=== PATIENT | male | born 1965 | race Caucasian/White ===

== ENCOUNTER 2025-10-18 10:28 | Outpatient (CLI) | payer BC, SELFPAY ==
--- NOTE | ~2025-10-18 | XR_ITS ---
XR abdomen/kub 1V 10/18/2025 10:45 INDICATION: Urolithiasis. Left lower quadrant discomfort. TECHNIQUE: KUB COMPARISON: None FINDINGS: Bowel gas pattern is normal. There is no evidence of free air, mass, organomegaly, ascites or obstruction. There is a left renal stone presumably in the renal pelvis at the L2 level. The bones appear intact. There are cholecystectomy clips. There are pelvic phleboliths. There are prostate ca lcifications. IMPRESSION: 1: Left nephrolithiasis. Reviewed, dictated and finalized at location I. [employer] IMPRESSION: 1: Left nephrolithiasis.
== END 2025-10-18 10:29 | disposition home or self-care (01) ==
PROVIDERS: PCP Student in an Organized Health Care Education/Training Program; Visit Provider Urology
DX: N20.0 Calculus of kidney (principal)
CPT/HCPCS: 74018

== ENCOUNTER 2025-10-23 10:25 | Outpatient (CLI) | payer BC, SELFPAY ==
[2025-10-23 11:13] LABS: INR 1.0; Partial Thromboplastin Time 30.0 Seconds (22.3-36.8); Prothrombin Time 12.7 Seconds (11.1-14.7)
== END 2025-10-23 10:26 | disposition home or self-care (01) ==
LOC: ANHLAB 10:26
PROVIDERS: PCP Student in an Organized Health Care Education/Training Program; Visit Provider Urology
DX: N20.0 Calculus of kidney (principal); R10.32 Left lower quadrant pain
CPT/HCPCS: 36415; 85610; 85730

== ENCOUNTER 2025-10-26 02:59 | Day surgery (SDC) | payer BC, SELFPAY ==
[2025-10-23 09:30] VITALS: BMI 25.4
--- NOTE | 2025-10-23 09:58 | PC.NURSE ---
[facility] has started construction of its new state of the art ER which will open Spring 2026. With this, we anticipate parking may be a challenge for some our surgical patients and families. Parking spaces are limited but are available for all Surgical, obstetrics, and ER patients sharing this lot. If you arrive and find you are having a hard time finding a parking space, please note that we understand the challenges, please drive around the hospital and park near Hospital Entrance 1. When you enter this entrance, you can ask a volunteer to direct or take you back to the surgical waiting area to check in. We appreciate everyone?s understanding of these expected challenges while we build for your future. Report to the Outpatient Waiting Room, entrance under the green pavilion located off [address], at time _0630AM on date __10/26/25 . Planned Procedure Time: __0830AM .? Time changes happen often and if your time is changed the preop area will call you the afternoon before. - You and your visitor will be asked to self-screen and do not enter if you have any COVID symptoms. Please call surgeon if you need to reschedule. - A mask is optional within the hospital at this time. Patients may have clear liquids (water, carbonated beverages, clear teas, apple juice) until 3 hours prior to surgery with a maximum of 20 ounces. - No food from midnight until time of surgery and no smoking, or chewing tobacco (or any form of nicotine). No chewing gum, candy or mints. - Take only the following medications with a SIP of water on the morning of surgery: ___N/A DO NOT STOP ANY OF YOUR OTHER PRESCRIPTION MEDICATIONS PRIOR TO SURGERY EXCEPT THE FOLLOWING Hold all vitamins and supplements for 3 days per anesthesiologist. Medications to discontinue per physician N/A Date to take last dose__N/A Please no make-up, nail micronesian, hairspray, perfume, deodorant, or body powder the day of surgery.? No jewelry (including any body piercings) or valuables the day of surgery, leave them at home.? Please take a shower or bath the night before, or the morning of, surgery with an antibacterial soap.? Wear comfortable, loose fitting clothing.? Children are encouraged to wear pajamas. - Jewelry must be removed prior to entering the operating room.? Rings and piercings that are not removed may be cut off. - The hospital will not accept responsibility for valuables.? - Please leave all valuables, including medications, at home the day of surgery. If you are going home after surgery, a licensed stock car driver must drive you home.? - NO public transportation without another adult if you receive anesthesia. - We recommend that an adult stay with you for 24 hours following discharge. - We also recommend that you do not drive, make important decision, drink alcoholic beverages, or take any drugs that were not prescribed by your health care provider for at least 24 hours after your discharge time. Follow any additional instructions given to you from your surgeon. Telephone instructions given to JOVANNA and asked if any additional questions and then verbalized understanding. Patient advised to call surgeon office or pre surgery nurse liaison [phone] if any additional questions.
[2025-10-26] VITALS (8 sets, daily range): BP systolic 95–130; BP diastolic 58–81; PULSE 47–60; RESP 10–16; TEMP 36.4–36.6; O2SAT 99–100; BMI 25.4
--- NOTE | ~2025-10-26 | XR_ITS ---
EXAMINATION: XR abdomen/kub 1V, 10/26/2025 6:20 READING TEACHER HISTORY: ESWL COMPARISON: No comparisons available. Technique: 3 view. Findings: Bowel gas pattern unremarkable. No obstruction. Within the lower pole the left kidney there is a calculus measuring 6 x 3 mm. No acute osseous abnormality. Impression: 1. No acute abnormality. Reviewed, dictated and finalized at location P. ING TEACHER Impression: 1. No acute abnormality.
--- OUTSIDE RECORDS SUMMARY | 2025-10-26 03:02 | XMS_ITS | Encounter Summary ---
Author Organization [facility] Address [address] [place] [address] Care Team Providers Care Front End Ui Developer Name Role Phone Telly Rachel DO Primary Care Provider + Reason for Visit * Reason Comments Image (SCAN) Encounter Details Date Type Department Care Team (Latest Contact Info) Description 10/18/2025 Scan HEALTH INFO SRVCS Scanned, Doc Med Group Image (SCAN) Social History Tobacco Use Types Packs/Day Years Used Date Smoking Tobacco: Former Cigarettes 1 2 0 11/15/1983 - 11/15/1985 Smokeless Tobacco: Never Alcohol Use Standard Drinks/Week Comments Yes 5 (1 standard drink = 0.6 oz pur e alcohol) Sex and Gender Information Value Date Recorded Sex Assigned at Male 10/16/2025 12:36 PM FINANCIAL SERVICES INTERNSHIP Legal Sex Male 11:41 AM CDT Gender Identity Not on file Sexual Orientation Not on file Occupation Industry Job Start Date Job End Date Not on file Not on file Not on file Not on file documented as of this encounter Plan of Treatment Upcoming Encounters Date Type Department Care Team (Late st Contact Info) Description 12/07/2025 8:40 AM FINANCIAL SERVICES INTERNSHIP Office Visit [facility] Family & Internal Medicine [id number] [place] [phone] Telly Rachel DO [address] [place] [address] [phone] documented as of this encounter Procedures Procedure Name Priority Date/Time Associated Diagnosis Comments IMAGE GENERIC 10/18/2025 documented in this encounter Results * IMAGE GENERIC (10/18/2025) Anatomical Region Laterality Modality Other 10/18/2025 us Doc Med Group Scanned SCANNING Final Resu lt documented in this encounter Visit Diagnoses Not on filedocumented in this encounter Care Teams Front End Ui Developer Relationship Specialty Start Date End Date Telly Rachel DO [address] [place], [place] [phone] PCP - General FAMILY PRACTICE 09/24/22 documented as of this encounter
--- OUTSIDE RECORDS SUMMARY | 2025-10-26 03:02 | XMS_ITS | Clinical Summary ---
Author Organization [facility] Address [address] [place] [address] Care Team Providers Care Quality Assurance Qa Lab Technician Name Role Phone Telly Rachel Primary Care Provider + Allergies Active Allergy Reactions Criticality Noted Date Comments Penicillins Unknown 11/15/1968 Statins Joint Pain,Leg Pain 03/15/2012 Medications TURMERIC CURCUMIN OR Active tamsulosin (FLOMAX) 0.4 MG CapIndications: Ureteropelvic junction calculus Take 1 capsule (0.4 mg total) by mouth daily. 30 capsule 1 5 Active hydrocortisone 2.5 % cream APPLY TOPICALLY TO AFFECTED AREAS OF FACE TWICE DAILY. 2 10/16/20 25 Discontinu ed(Therapy completed) Active Problems Problem Noted Date Diagnosed Date Palpitations 09/15/2022 Encounters Date Type Department Care Team Description 10/18/2025 Scan HEALTH INFO SRVCS Scanned, Doc Med Group Image (SCAN) 10/16/2025 2:05 PM RECRUITMENT MANAGER - 10/16/2025 11:59 PM RECRUITMENT MANAGER Hospital [place] [address] [place] [address] Maribel Winters APNP Discharge Disposition: Home or Self Care (Routine Discharge) 10/16/2025 12:40 PM RECRUITMENT MANAGER Office Visit [facility] Family & Internal Medicine [address] [phone] Maribel Winters APNP UTI (Pt c/o LLQ pain and visible blood in urine-onset yesterday. ) 10/16/2025 - 10/16/2025 2:04 PM RECRUITMENT MANAGER Hospital [facility] [address] [place] [address] Maribel Winters APNP Discharge Disposition: Home or Self Care (Routine Discharge) 10/16/2025 Results Follow-Up [facility] Family & Internal Medicine [address] [phone] ABD+PEL KIDNEY STONE, URINALYSIS AUTO DIP, URINE BACTERIA CULTURE 10/16/2025 Travel from Last 3 Months Immunizations Immunization Administration Dates Next Due Influenza Adult (Generic) 07/31/2020,09/03/2019, 09/24/2018 Shingrix 01/30/2021,08/01/2020 Family History Medical History Relation Comments Cancer Brother Prostate Cancer Father Prostate, skin Cancer Mother Breast Cancer Sister Breast, Bladder Relation Status Comments Brother Father Mother Sister Social History Tobacco Use Types Packs/Day Years Used Date Smoking Tobacco: Former Cigarettes 1 2 0 11/15/1983 - 11/15/1985 Smokeless Tobacco: Never Tobacco Cessation:Counseling Given: Yes Alcohol Use Standard Drinks/Week Comments Yes 5 (1 standard drink = 0.6 oz pur e alcohol) Sex and Gender Information Value Date Recorded Sex Assigned at Male 10/16/2025 12:36 PM RECRUITMENT MANAGER Legal Sex Male 11:41 AM CDT Gender Identity Not on file Sexual Orientation Not on file Occupation Industry Job Start Date Job End Date Not on file Not on file Not on file Not on file Last Filed Vital Signs Vital Sign Reading Time Taken Comments Blood Pressure 122/72 10/16/2025 12:36 PM RECRUITMENT MANAGER Pulse 71 10/16/2025 12:36 PM RECRUITMENT MANAGER Temperature 36.2 C (97.1 F) 10/16/2025 12:36 PM RECRUITMENT MANAGER Respiratory Rate 16 10/16/2025 12:36 PM RECRUITMENT MANAGER Oxygen Saturation 98% 10/16/2025 12:36 PM RECRUITMENT MANAGER Inhaled Oxygen Concentration - - Weight 70.5 kg (155 lb 8 oz) 10/16/2025 12:36 PM RECRUITMENT MANAGER Height 165.1 cm (5' 5) 10/16/2025 12:36 PM RECRUITMENT MANAGER Body Mass Index 25.88 10/16/2025 12:36 PM RECRUITMENT MANAGER Plan of Treatment Upcoming Encounters Date Type Department Care Team (Late st Contact Info) Description 12/07/2025 8:40 AM RECRUITMENT MANAGER Office Visit [facility] Family & Internal Medicine - [id number] [place] [phone] Telly Rachel DO [address] [place] [address] Health Maintenance Due Date Last Done Comments Annual Physical 1967 DTaP, Tdap and Td Vaccines ( 1 - Tdap) 1983 Pneumococcal Vaccine: 50+ Years (1 of 1 - PCV) 2014 PHQ-2 (Physician [place]) 11/15/2024 COVID-19 Vaccine ( - 2024-2 6 season) 2025 Influenza Adult (#1) 2025 07/31/2020, 09/03/2019, 09/24/2018 Colorectal Cancer Screening Colonoscopy (10 Years) 11/15/2026 Postponed from (Awaiting Documentation) RSV Immunization or 60+ Years (1 - 1-dose 75+ series) 2039 Zoster Vaccines Completed 01/30/2021, 08/01/2020 Hepatitis C Completed 10/26/2022 Hepatitis A Vaccines Aged Out No long er eligible based on patient's age to complete this topic Meningococcal B Vaccine Aged Out No l onger eligible based on patient's age to complete this topic Meningococcal Vaccine Aged Out No kait mary eligible based on patient's age to complete this topic RSV Immunizations Under 20 Months Aged Out No longer eligible b ased on patient's age to complete this topic Procedures Procedure Name Priority Date/Time Associated Diagnosis Comments IMAGE GENERIC 10/18/2025 CT ABD+PEL KIDNEY STONE STAT 10/16/2025 2:15 PM RECRUITMENT MANAGER Left lower quadrant abdominal pain Hematuria, unspecified type URINE BACTERIA CULTURE Routine 10/16/2025 1:42 PM RECRUITMENT MANAGER Hematuria, unspecified type URINALYSIS AUTO DIP Routine 10/16/2025 Gross hematuria HEPATITIS C ANTIBODY Routine 10/26/2022 8:22 AM RECRUITMENT MANAGER Need for hepatitis C screening test from Last 3 Months or Most Recently Relevant to Health Maintenance Results * IMAGE GENERIC (10/18/2025) Anatomical Region Laterality Modality Other 10/18/2025 us Doc Med Group Scanned SCANNING Final Resu lt * CT ABD+PEL KIDNEY STONE (10/16/2025 2:15 PM RECRUITMENT MANAGER) Anatomical Region Laterality Modality Abdomen Computed Tomogra phy 10/16/2025 2:32 PM RECRUITMENT MANAGER Impressions 10/16/2025 2:52 PM RECRUITMENT MANAGER IMPRESSION: 1. There is a nonobstructing 0.8 cm calculus at the left ureteropelvic junction. No additional ureteral calculus. 2. Additional nonobstructing bilateral intrarenal nephrolithiasis. Ordered By: MARIBEL WINTERS Interpreted By: Liam Veronica MD, 10/16/2025 2:32 PM Narrative 10/16/2025 2:52 PM RECRUITMENT MANAGER [facility] [address] [facility] [place] [address] EXAMINATION: CT ABD+PEL KIDNEY STONE DATE: 10/16/2025 2:07 PM HISTORY: 60-year-old male with left lower quadrant pain and hematuria. TECHNIQUE: Computed tomography of the abdomen and pelvis. Oral Contrast: None. Intravenous Contrast: None. A dose lowering technique was used for this procedure, which may include, but is not limited to, dose reduction technique, automated exposure control, the use of iterative reconstruction, and ALARA (As Low As Reasonably Achievable) / Image Gently techniques. COMPARISON: None. FINDINGS: Lower Chest: Included lung bases are clear. Liver: Normal in size and contour. Biliary System: Cholecystectomy. No biliary ductal dilatation. Pancreas: Unenhanced pancreas is unremarkable. Spleen: Normal in size. Adrenal Glands: Negative. Kidneys: Right renal cyst. Bilateral intrarenal nephrolithiasis. No hydronephrosis. There is a nonobstructing 0.8 cm calculus at the left ureteropelvic junction. No other ureteral calculus is present. Bowel: Stomach is underdistended. Small bowel and colon are normal in caliber. Appendix is negative and noted to terminate in the omentum right of midline. Surgical clips in the distal left paracolic gutter. Mesentery, Omentum, and Peritoneum: No pneumoperitoneum or ascites. Pelvic Organs: Urinary bladder is underdistended. Prostate gland is mildly enlarged and contains coarse calcifications. Lymph Nodes: No lymphadenopathy. Vasculature: Atherosclerotic calcifications of the abdominal aorta and its branches. Abdominal aorta is normal in caliber. Bones and Soft Tissues: Mild degenerative changes of the spine, hips, and sacroiliac joints. Procedure Note Liam Veronica MD - 10/16/2025 [facility] [address] [place], [place] [id number] EXAMINATION: CT ABD+PEL KIDNEY STONE DATE: 10/16/2025 2:07 PM HISTORY: 60-year-old male with left lower quadrant pain and hematuria. TECHNIQUE: Computed tomography of the abdomen and pelvis. Oral Contrast:None. Intravenous Contrast: None. A dose lowering technique was used forthis procedure, which may include, but is not limited to, dose reductiontechnique, automated exposure control, the use of iterativereconstruction, and ALARA (As Low As Reasonably Achievable) / Image Gentlytechniques. COMPARISON: None. FINDINGS: Lower Chest: Included lung bases are clear. Liver: Normal in size and contour. Biliary System: Cholecystectomy. No biliary ductal dilatation. Pancreas: Unenhanced pancreas is unremarkable. Spleen: Normal in size. Adrenal Glands: Negative. Kidneys: Right renal cyst. Bilateral intrarenal nephrolithiasis. Nohydronephrosis. There is a nonobstructing 0.8 cm calculus at the leftureteropelvic junction. No other ureteral calculus is present. Bowel: Stomach is underdistended. Small bowel and colon are normal incaliber. Appendix is negative and noted to terminate in the omentum rightof midline. Surgical clips in the distal left paracolic gutter. Mesentery, Omentum, and Peritoneum: No pneumoperitoneum or ascites. Pelvic Organs: Urinary bladder is underdistended. Prostate gland is mildlyenlarged and contains coarse calcifications. Lymph Nodes: No lymphadenopathy. Vasculature: Atherosclerotic calcifications of the abdominal aorta and itsbranches. Abdominal aorta is normal in caliber. Bones and Soft Tissues: Mild degenerative changes of the spine, hips, andsacroiliac joints. IMPRESSION: 1. There is a nonobstructing 0.8 cm calculus at the left ureteropelvicjunction. No additional ureteral calculus. 2. Additional nonobstructing bilateral intrarenal nephrolithiasis. Ordered By: MARIBEL WINTERS Interpreted By: Liam Veronica MD, 10/16/2025 2:[address] Final Resul t * URINE BACTERIA CULTURE (10/16/2025 1:42 PM RECRUITMENT MANAGER) SPEC DESCRIPTION URINE CLEAN CATCH 10/16/2025 1:43 PM RECRUITMENT MANAGER [facility] SPECIAL REQUESTS NO SPECIAL REQUEST 10/16/2025 1:43 PM RECRUITMENT MANAGER [facility] CULTURE RESULT NO GROWTH (< OR = 1,000 CFU/ML) 10/18/2025 10:09 AM RECRUITMENT MANAGER [facility] URINE URINE SPECIMEN OBTAINED BY CLEAN CATCH PROCEDURE / Unknown 10/16/2025 1:42 PM RECRUITMENT MANAGER 10/16/2025 8:46 PM RECRUITMENT MANAGER Maribel CAZARES MICROBIOLOGY - GENERAL ORDE RABLES Final Result [facility] [address] [place] [address], [id number] * (ABNORMAL) URINALYSIS AUTO DIP (10/16/2025) COLOR (U) YELLOW YELLOW -[facility] TRANSPARENCY CLEAR CLEAR MG-[facility] GLUCOSE (U) NEGATIVE NEGATIVE MG/DL [facility] BILIRUBIN (U) NEGATIVE NEGATIVE MG-[facility] [place] MG/DL (U) 40 (MODERATE 2+)(A) NEGATIVE MG/DL [facility] SPECIFIC GRAVITY (U) 1.020 1.001 - 1.035 [facility] BLOOD (U) MODERATE (2+ Hemolyzed, About 50 rbc/uL)(A) NEGATIVE [facility] U PH 5.5 5.0 - 9.0 [facility] PROTEIN (U) NEGATIVE NEGATIVE mg/dL [facility] UROBILINOGEN 0.2 0.2 - 1.0 EU/dL = mg/dL [facility] NITRITES NEGATIVE NEGATIVE MG/DL [facility] LEUKOCYTES (U) NEGATIVE NEGATIVE [facility] URINE URINE SPECIMEN OBTAINED BY CLEAN CATCH PROCEDURE / Unknown 10/16/2025 Maribel CAZARES URINE ORDERABLES Final Resu lt Performing Organization Address [facility] Co de Phone Number [facility] [address] [place] [address], [place] * HEPATITIS C ANTIBODY ([facility] ONLY) (10/26/2022 8:22 AM RECRUITMENT MANAGER) HEPATITIS C AB NON-REACTI VE NON-REACT LUTHER 10/26/2022 7:29 PM RECRUITMENT MANAGER [facility] Comment: ANTIBODIES TO HCV NOT DETECTED. DOES NOT EXCLUDE THE POSSIBILITY OF EXPOSURE TO HCV. 10/26/2022 8:22 AM RECRUITMENT MANAGER us Telly Rachel DO LABORATORY Final Re sult Performing Organization Address City/[facility]/ZIP Co de Phone Number [facility] [address] [place] [address], [place] [phone] from Last 3 Months or Most Recently Relevant to Health Maintenance Insurance [facility] Care Teams Quality Assurance Qa Lab Technician Relationship Specialty Start Date End Date Telly Rachel DO [address] [place] [phone] PCP - General FAMILY PRACTICE 09/24/22
--- OUTSIDE RECORDS SUMMARY | 2025-10-26 03:02 | XMS_ITS | Encounter Summary ---
Author Organization [facility] Address [address] [place] [address] Care Team Providers Care Ergonomics Technician Name Role Phone Telly Rachel DO Primary Care Provider + Encounter Details Date Type Department Care Team (Late Contact Info) Description 10/17/2023 Watchful Softwarehart Message Enc [facility] Family & Internal [address] [phone] Telly Rachel DO [address] [place], [place] [phone] Yearly Blood work Social History Tobacco Use Types Packs/Day Years Used Date Smoking Tobacco: Former Cigarettes 1 2 0 11/15/1983 - 11/15/1985 Smokeless Tobacco: Never Alcohol Use Standard Drinks/Week Comments Yes 5 (1 standard drink = 0.6 oz pur e alcohol) Sex and Gender Information Value Date Recorded Sex Assigned at Male 10/16/2025 12:36 PM SENIOR STORAGE ENGINEER Legal Sex Male 11:41 AM CDT Gender Identity Not on file Sexual Orientation Not on file Occupation Industry Job Start Date Job End Date Not on file Not on file Not on file Not on file documented as of this encounter Plan of Treatment Upcoming Encounters Date Type Department Care Team (Late st Contact Info) Description 12/07/2025 8:40 AM SENIOR STORAGE ENGINEER Office Visit [facility] Family & Internal [address] [phone] Telly Rachel DO [address] [place], [place] [phone] documented as of this encounter Visit Diagnoses Not on filedocumented in this encounter Care Teams Ergonomics Technician Relationship Specialty Start Date End Date Telly Rachel DO [address] [place] [phone] PCP - General FAMILY PRACTICE 09/24/22 documented as of this encounter
[2025-10-26] MEDS: LACTATED RINGERS 1,000 ML 30 ML IV CONT (07:00)
--- NOTE | 2025-10-26 07:07 | WPDHPUPDATE1 ---
History and Physical Update Update Date/Time: 10/26/25 07:07 History and Physical has been reviewed, including an updated exam of the patient. There are NO changes in the patient's condition. Risks, benefits, and alternatives have been discussed and questions answered. Patient agrees to proceed with procedure.
--- NOTE | 2025-10-26 07:07 | PM.HPGS ---
History of Present Illness History of Present Illness Consent: Risks, benefits, and alternatives have been discussed and questions answered. Patient agrees to proceed with procedure. Chief complaint: left kidney stone Narrative: Mynor Ontiveros is a 60 year old male with left flank pain, found to have left UPJ stone. He presents for left extracorporeal shock wave lithotripsy (SWL). Review of Systems Review of Systems: All systems reviewed & are unremarkable except as noted in HPI and below PMFSH Past Medical History Medical History (Updated 10/26/25 @ 07:09 by Laura Lama MD) Family history of prostate cancer Allergic rhinitis Hyperlipidemia Surgical History Surgical History S/P repair of hydrocele S/P scrotal varicocelectomy S/P cholecystectomy Family History Family History Father Malignant neoplasm of prostate Family history of elevated blood lipids Family history of amyotrophic lateral sclerosis Sibling Family history of gallbladder disease Malignant neoplasm of prostate Family history of malignant neoplasm of breast in first degree relative Family history of malignant neoplasm of breast Family history of malignant neoplasm of urinary bladder Mother Family history of heart disease in male family member before age 55 Acute myocardial infarction Hypertension Family history of elevated blood lipids Family history of malignant neoplasm of breast in first degree relative Social History Social History Smoking packs per day: 1 Smoking cigarettes per day: 20.0 Years smoked: 3 Smoking pack-years: 3.00 Smoking status: Former smoker Smoking end date: 11/15/83 Alcohol intake: current Substance use: never Substance use type: does not use Living arrangements: with family Spiritual care concerns: No Meds Home Medications and Allergies Home Medications ?Medication ?Instructions ?Recorded ?Confirmed ?Type cholecalciferol (vitamin D3) 1,250 See Rx Instructions .Route 06/24/21 10/23/25 Rx mcg (50,000 unit) capsule .COMPLEX #12 caps Allergies Allergy/AdvReac Type Severity Reaction Status Date / Time amoxicillin Allergy Unknown Sun Verified 10/23/25 09:46 Sensitivity Penicillins Allergy Unknown Unknown Verified 10/23/25 09:46 Ecqhsaz-PVP-IoW Reductase Allergy Unknown myalgia Verified 10/23/25 09:46 Inhibitor (Auiwckx-Bes-Hey Reductase Inhibitor) tamsulosin AdvReac Mild Congested Verified 10/23/25 09:46 Assessment and Plan Assessment and plan (1) Left nephrolithiasis: Code(s): N20.0 - Calculus of kidney Status: Acute Plan Plan left extracorporeal shock wave lithotripsy. Risks, benefits, alternatives have been discussed. All questions were answered.
--- NOTE | 2025-10-26 07:11 | P.PNAN_ITS ---
Anes - Initial Pre Proc Eval Procedure: Operation Date: 10/26/25 07:30 Proposed Procedures p Left Extracorporeal Shock Wave Lithotripsy - Laura Lama MD Date/Time: 10/26/25 07:11 Surgeon: Laura Lama MD Pre Op Diagnosis: left kidney stone Patient Data Age: 60 Gender: M Height: 1.65 m Weight: 69.2 kg Allergies Allergy/AdvReac Type Severity Reaction Status Date / Time amoxicillin Allergy Unknown Sun Verified 10/26/25 07:18 Sensitivity Penicillins Allergy Unknown Unknown Verified 10/26/25 07:18 Namdbqg-GWR-JsF Reductase Allergy Unknown myalgia Verified 10/26/25 07:18 Inhibitor (Wskqkmm-Kqw-Oeg Reductase Inhibitor) tamsulosin AdvReac Mild Congested Verified 10/26/25 07:18 Home Medications ?Medication ?Instructions ?Recorded ?Confirmed ?Type cholecalciferol (vitamin D3) 1,250 See Rx Instructions .Route 06/24/21 10/23/25 Rx mcg (50,000 unit) capsule .COMPLEX #12 caps Patient hx anesthesia problems: none Family hx anesthesia problems: none Results Review: All pre-operative results and documents have been reviewed as part of the pre- operative evaluation. [facility] Past Medical History Medical History Family history of prostate cancer Allergic rhinitis Hyperlipidemia Surgical History Surgical History S/P repair of hydrocele S/P scrotal varicocelectomy S/P cholecystectomy Family History Family History Father Malignant neoplasm of prostate Family history of elevated blood lipids Family history of amyotrophic lateral sclerosis Sibling Family history of gallbladder disease Malignant neoplasm of prostate Family history of malignant neoplasm of breast in first degree relative Family history of malignant neoplasm of breast Family history of malignant neoplasm of urinary bladder Mother Family history of heart disease in male family member before age 55 Acute myocardial infarction Hypertension Family history of elevated blood lipids Family history of malignant neoplasm of breast in first degree relative Social History Social History Smoking packs per day: 1 Smoking cigarettes per day: 20.0 Years smoked: 3 Smoking pack-years: 3.00 Smoking status: Former smoker Smoking end date: 11/15/83 Alcohol intake: current Substance use: never Substance use type: does not use Living arrangements: with family Spiritual care concerns: No Anes - Eval Final PreProcedure Day of Procedure 10/26/25 07:11 Patient weight: normal Heart: regular rate and rhythm Lungs: clear to auscultation Airway: Mallampati scale class II Neurological: alert and oriented Last oral intake: >/= 8 hours ASA classification: II Emergent: no Anesthetic plan: proceed Anesthesia type and monitoring: general LMA and standard monitoring Results Review: All pre-operative results and documents have been reviewed as part of the pre- operative evaluation. Informed Consent: The patient's anesthetic plan and its attendant risks and benefits were discussed with the patient/family/POA. Questions were solicited and answers provided to the satisfaction of the patient/family/POA.
[2025-10-26] MEDS: ceFAZolin 2 GM in SODIUM CHLORIDE 0.9% IV 50 ML 100 ML IVPB (07:28)
[2025-10-26] MEDS: SCOPOLAMINE 1 MG PATCH 1 PATCH TRANSDERM (07:43)
[2025-10-26] MEDS: oxyCODONE HCL (*CRX) 5 MG TAB IR PO (09:20)
--- NOTE | 2025-10-26 13:04 | W.PM.PROC2 ---
Procedure Note - Detailed Date of Procedure 10/26/25 Pre-op Diagnosis Left renal stone Post-op Diagnosis Same Procedure Performed Left extracorporeal shock wave lithotripsy Surgeon Laura Lama MD Anesthesia General Indications Left flank pain Findings Left renal stone Description of Procedure PROCEDURE DETAILS: The patient was correctly identified and informed consent was obtained.? The patient was taken to the operating room and placed in the supine position.? Intravenous antibiotics were administered for infection prophylaxis and bilateral SCDs were placed for DVT prophylaxis. The patient was positioned over the shock head of the lithotripter.? The stone was located at F2 using fluoroscopy.? 3000 shockwaves were delivered to the stone. The stone appeared to fragment.? The patient tolerated the procedure well and returned to the recovery area in good condition. Estimated Blood Loss 0 Drains No Packing No Pathology None sent Complications None Condition Stable Disposition PACU
== END 2025-10-26 10:22 | disposition home or self-care (01) ==
PROVIDERS: PCP Student in an Organized Health Care Education/Training Program; Visit Provider Urology
PROC: (CPT 50590; principal; 2025-10-26 07:30)
DX: N20.0 Calculus of kidney (principal); E78.5 Hyperlipidemia, unspecified; Z98.890 Other specified postprocedural states; Z90.49 Acquired absence of other specified parts of digestive tract; Z87.891 Personal history of nicotine dependence; Z80.42 Family history of malignant neoplasm of prostate; Z80.3 Family history of malignant neoplasm of breast; Z80.52 Family history of malignant neoplasm of bladder; Z82.49 Family history of ischemic heart disease and other diseases of the circulatory system
CPT/HCPCS: 50590; 74018; J0690; A9270; J2250; J2270; J2704; J7030; J7120

== ENCOUNTER 2025-11-12 21:50 | Emergency (ER) | payer BC, SELFPAY ==
--- NOTE | ~2025-11-12 | CT_ITS ---
EXAMINATION: CT abdomen pelvis wo con DATE: 11/13/2025 02:59 INDICATION: Flank pain. TECHNIQUE: Computed tomography (CT) of the abdomen and pelvis was performed without intravenous contrast. Automated exposure control and iterative reconstruction technique were employed. The dose-length product was 322.49 mGy-cm. COMPARISON: CT abdomen and pelvis 03/05/2017 FINDINGS: The visualized portions of the lung bases demonstrate mild atelectasis. No pleural effusion. The heart size is normal. No pericardial effusion. The liver is normal. There are changes of cholecystectomy. The spleen, pancreas, and adrenal glands are normal. There is a 2.6 cm cyst in right kidney. There are 3 stones in right kidney measuring up to 3 mm. There are 2 stones in left kidney measuring up to 7 mm. There is moderate left hydronephrosis and hydroureter. There are at least 4 stones in distal left ureter measuring up to 5 mm. There are no dilated loops of bowel. There is diverticulosis of the colon without evidence of diverticulitis. The appendix is normal. There are no pathologically enlarged lymph nodes. There is no free intraperitoneal fluid. There is severe lower lumbar spondylosis. IMPRESSION: 1. At least 4 stones in distal left ureter measuring up to 5 mm with moderate left hydronephrosis and hydroureter. 2. Bilateral nonobstructing kidney stones. Reviewed, dictated and finalized at location E. ERCIAL HVAC SERVICE TECHNICIAN IMPRESSION: 1. At least 4 stones in distal left ureter measuring up to 5 mm with moderate l eft hydronephrosis and hydroureter. 2. Bilateral nonobstructing kidney stones.
[2025-11-12 21:58] VITALS: BP 152/85; PULSE 65; RESP 18; TEMP 37; O2SAT 100
[2025-11-12 23:57] LABS: Hematocrit 44.1 % (42.0-52.0); Hemoglobin 15.1 g/dL (14.0-18.0); Immature Granulocyte Percent A 0.3 % (0-0.5); Lymphocytes Absolute Auto 1.43 K/mm3 (0.9-3.2); Mean Corpuscular HGB Conc 34.2 g/dl (32-36); Mean Corpuscular Hemoglobin 30.1 pg (26-34); Mean Corpuscular Volume 87.8 fl (80-100); Nucleated Red Blood Cells Absolute Auto 0.000 K/mm3 (0.0-0.012); Nucleated Red Blood Cells Perc 0.0 % (0.0-0.2); Platelet Count Result 237 k/mm3 (150-375); Red Blood Count 5.02 M/mm3 (4.6-6.20); White Blood Count 10.8 K/mm3 (4.5-10.0)
[2025-11-13] VITALS (10 sets, daily range): BP systolic 114–160; BP diastolic 73–95; PULSE 58–69; RESP 12–19; TEMP 36.4–36.6; O2SAT 98–100
[2025-11-13 00:08] LABS: Alanine Aminotransferase 22 U/L (6-50); Albumin Level 4.0 g/dL (3.5-5.1); Alkaline Phosphatase 88 U/L (38-126); Anion Gap 6 mmol/L (4-12); Aspartate Amino Transferase 28 U/L (17-59); Bilirubin,Total 0.9 mg/dL (0.2-1.3); Blood Urea Nitrogen 21 mg/dL (9-20); Calcium 9.8 mg/dL (8.4-10.2); Carbon Dioxide 25 mmol/L (22-30); Chloride 107 mmol/L (98-107); Estimated CRCL calculation 54 ml/min; Estimated Glomerular Filt Rate > 60; Glucose 103 mg/dL (65-110); Potassium 4.0 mmol/L (3.4-5.0); Sodium 138 mmol/L (137-145); Total Protein 7.5 g/dL (6.3-8.2)
[2025-11-13 00:09] LABS: Add Urine Microscopic? YES; Appearance Urine Clear (Clear); Glucose Urine UA Negative (Negative); Leukocyte Esterase Ur Negative LEU/UL (Negative); Need Manual Microscopic Reviewed; Nitrate Urine Negative (Negative); Non Pathogenic Casts 0-2; Specific Grav Ur 1.016 (1.001-1.035)
--- NOTE | 2025-11-13 02:51 | ED.MALEGU ---
HPI - Male Genitourinary General Chief complaint: Urogenital-Male Stated complaint: L Flank pain/blood in urine-Lithotripsy 10/26/25 Time Seen by Provider: 11/13/25 02:45 History of Present Illness HPI Narrative: 60-year-old male with history of kidney stones with recent 8 mm left-sided kidney stone requiring shock wave lithotripsy about 2 weeks ago. Patient did well after the procedure and still had some pink-tinged urine but yesterday noted that he had recurrence of the same pain he experienced during his kidney stone before. Started in his left flank and now in his left low groin left lower quadrant. Endorses some blood in his urine but no difficulty urinating. States he does not have a good reaction with tamsulosin as it made him feel warm flushed lightheaded dizzy and had a headache. Ran out of pain medications at home. Denies any nausea vomiting. Pain comes and goes in waves. No systemic symptoms such as fever, chills, vomiting. Denies any traumatic injuries or any recent health concerns otherwise. Related Data Allergies Allergy/AdvReac Type Severity Reaction Status Date / Time amoxicillin Allergy Unknown Sun Verified 10/26/25 07:18 Sensitivity Penicillins Allergy Unknown Unknown Verified 10/26/25 07:18 Fujzukq-PGN-HbV Reductase Allergy Unknown myalgia Verified 10/26/25 07:18 Inhibitor (Mwxwqts-Vbe-Uwk Reductase Inhibitor) tamsulosin AdvReac Mild Congested Verified 10/26/25 07:18 Review of Systems Review of Systems: As reviewed above in HPI All systems reviewed & are unremarkable except as noted in HPI and below PMFSH Past Medical History Medical History (Updated 11/13/25 @ 06:30 by Yaya Hyman MD) Family history of prostate cancer Allergic rhinitis Hyperlipidemia Surgical History Surgical History S/P repair of hydrocele S/P scrotal varicocelectomy S/P cholecystectomy Family History Family History Father Malignant neoplasm of prostate Family history of elevated blood lipids Family history of amyotrophic lateral sclerosis Sibling Family history of gallbladder disease Malignant neoplasm of prostate Family history of malignant neoplasm of breast in first degree relative Family history of malignant neoplasm of breast Family history of malignant neoplasm of urinary bladder Mother Family history of heart disease in male family member before age 55 Acute myocardial infarction Hypertension Family history of elevated blood lipids Family history of malignant neoplasm of breast in first degree relative Social History Social History Smoking packs per day: 1 Smoking cigarettes per day: 20.0 Years smoked: 3 Smoking pack-years: 3.00 Smoking status: Former smoker Smoking end date: 11/15/83 Alcohol intake: current Substance use: never Substance use type: does not use Living arrangements: with family Spiritual care concerns: No Exam Narrative: GENERAL: [Well-appearing, well-nourished, and in no acute distress.] HEAD: [Normocephalic, atraumatic.] EYES: [PERRLA and EOMI.] ENT: Nares clear, no rhinorrhea or epistaxis. Mucous membranes moist. NECK: Supple. CHEST: [Clear to auscultation. No respiratory distress.] HEART: [Regular rate and rhythm]. No murmur heard. [Normal peripheral pulses.] ABDOMEN: Minimal tenderness to palpation left lower quadrant. No CVA tenderness. No rigidity, rebound, guarding, peritonitis. EXTREMITIES: Normal range of motion. [No edema.] SKIN: Warm, dry, no rash. NEURO: [No focal deficits]. Alert and oriented [x3.] PSYCH: [Normal mood and affect.] Course Vital Signs Vital signs: Vital Signs Temperature 37.0 C 11/12/25 21:58 Pulse Rate 65 11/12/25 21:58 Respiratory Rate 18 11/12/25 21:58 Blood Pressure 152/85 H 11/12/25 21:58 Pulse Oximetry 100 11/12/25 21:58 Oxygen Delivery Room Air 11/12/25 21:58 Temperature 36.4 C 11/13/25 02:42 Pulse Rate 61 11/13/25 05:31 Respiratory Rate 13 11/13/25 05:31 Blood Pressure 117/73 11/13/25 05:31 Pulse Oximetry 98 11/13/25 05:31 Oxygen Delivery Room Air 11/12/25 21:[address] [facility] MDM Narrative Medical decision making narrative: 60-year-old male with history of kidney stones with recent 8 mm left-sided kidney stone requiring shock wave lithotripsy about 2 weeks ago. Patient did well after the procedure and still had some pink-tinged urine but yesterday noted that he had recurrence of the same pain he experienced during his kidney stone before. Started in his left flank and now in his left low groin left lower quadrant. Endorses some blood in his urine but no difficulty urinating. States he does not have a good reaction with tamsulosin as it made him feel warm flushed lightheaded dizzy and had a headache. Ran out of pain medications at home. Denies any nausea vomiting. Pain comes and goes in waves. No systemic symptoms such as fever, chills, vomiting. Denies any traumatic injuries or any recent health concerns otherwise. Patient is hemodynamically stable albeit minor early hypertensive. No tachycardia, tachypnea, fever or hypoxemia. Reproducible left lower quadrant pain with palpation on the same side of his recent lithotripsy. Most likely renal colic or new kidney stone or kidney stone fragment from recent shock wave lithotripsy. Given a dose of oxycodone as he is concurrently mostly comfortable at this time rates pain 5/10. CT scan without contrast, laboratory studies and urinalysis ordered. Labs unremarkable. Urinalysis without infection but does have some blood. CT scan reviewed by myself and interpreted by radiology as well. Has some left UVJ calculi measuring approximately 3 mm in diameter likely resultant from the recent lithotripsy in trying the past. Patient endorses passing some sediment in the urine today and likely will pass the rest the stones as they are small. He had symptomatic improvement after oxycodone. Discussed other treatment options such as Levsin and he would like to start this as well as additional pain medicines until he can follow-up with Urology. Discussed return precautions and he was safe for discharge. Differential Diagnosis Differential Diagnosis: Most likely renal colic or new kidney stone or kidney stone fragment from recent shock wave lithotripsy Lab Data MDM Lab Attestation statement: I personally reviewed the patient's lab results. 11/12/25 23:50 11/12/25 23:50 Labs: Lab Results 11/12/25 Range/Units 23:50 WBC 10.8 H (4.5-10.0) K/mm3 RBC 5.02 (4.6-6.20) M/mm3 Hgb 15.1 (14.0-18.0) g/dL Hct 44.1 (42.0-52.0) % MCV 87.8 (80-100) fl MCH 30.1 (26-34) pg MCHC 34.2 (32-36) g/dl RDW 13.0 (11.5-14.5) % Plt Count 237 (150-375) k/mm3 MPV 9.2 (7.4-10.4) fl Immature Gran % (Auto) 0.3 (0-0.5) % Neut % (Auto) 72.5 (45.5-73.1) % Lymph % (Auto) 13.3 L (18.3-44.2) % Gage % (Auto) 11.5 H (2.6-8.5) % Eos % (Auto) 1.9 (0-4.4) % Baso % (Auto) 0.5 (0.2-1.2) % Lymph # (Auto) 1.43 (0.9-3.2) K/mm3 Gage # (Auto) 1.2 H (0.1-0.6) K/mm3 Eos # (Auto) 0.2 (0-0.3) K/mm3 Baso # (Auto) 0.1 (0.0-0.1) K/mm3 Abs Immat Gran (auto) 0.03 (0.00-0.031) K/mm3 Absolute Neuts (auto) 7.8 H (1.3-6.7) K/mm3 Absolute Nucleated RBC 0.000 (0.0-0.012) K/mm3 Nucleated RBC % 0.0 (0.0-0.2) % Sodium 138 (137-145) mmol/L Potassium 4.0 (3.4-5.0) mmol/L Chloride 107 (98-107) mmol/L Carbon Dioxide 25 (22-30) mmol/L Anion Gap 6 (4-12) mmol/L BUN 21 H (9-20) mg/dL Creatinine 1.12 (0.7-1.3) mg/dL Estim Creat Clear Calc 54 ml/min Estimated GFR > 60 (59 - ) Glucose 103 (65-110) mg/dL Calcium 9.8 (8.4-10.2) mg/dL Total Bilirubin 0.9 (0.2-1.3) mg/dL AST 28 (17-59) U/L ALT 22 (6-50) U/L Alkaline Phosphatase 88 (38-126) U/L Total Protein 7.5 (6.3-8.2) g/dL Albumin 4.0 (3.5-5.1) g/dL Urine Color Yellow (Yellow) Urine Appearance Clear (Clear) Urine pH 6.5 (5.0-9.0) Ur Specific Myra 1.016 (1.001-1.035) Urine Protein Negative (Negative) mg/dL Urine Glucose (UA) Negative (Negative) mg/dL Urine Ketones Negative (Negative) mg/dL Ur Blood (Man) 2+ H (Negative) Urine Nitrate Negative (Negative) Urine Bilirubin Negative (Negative) Urine Urobilinogen 0.2 (<2.0) mg/dL Add Ur Microanalysis Reviewed Leukocyte Esterase Rfl Negative (Negative) JESU/UL Urine RBC 21-50 H (0-2) /hpf Urine WBC 0-5 (0-3) /hpf Ur Squamous Epith Cells None seen (Few) /hpf Urine Bacteria None seen /hpf Urine Casts 0-2 Imaging Data Attestation: I personally reviewed and interpreted this imaging study as follows: My impression: 3 mm kidney stone left UVJ Discharge Plan Discharge Clinical Impression: Calculus of ureterovesical junction (UVJ) Patient Disposition: Home Condition: Stable Instructions: Antibiotic Form, Hyoscyamine (By mouth), Kidney Stones (ED), How to Strain Your Urine (ED) Additional Instructions: You have some kidney stone particles still in your left urinary tract with the largest measuring 3 mm in diameter at the UVJ which is causing the symptoms. We have sent you home with new pain medications as well as Levsin which can help with ureteral spasming. Take medications and drink lots of water. Follow-up with Urology and return with any emergent concerns or worsening symptoms. Patient Language: Burkinan Prescriptions: New hyoscyamine sulfate [Levsin] 0.125 mg tablet 0.125 mg PO QID Qty: 20 0RF ondansetron 4 mg tablet,disintegrating 4 mg PO Q8H PRN (Reason: nausea and vomiting) Qty: 20 0RF oxycodone 5 mg tablet 5 mg PO Q8H PRN (Reason: pain) Qty: 14 0RF No Action oxycodone 5 mg capsule 5 mg PO Q4H PRN (Reason: pain) Qty: 10 0RF cholecalciferol (vitamin D3) 1,250 mcg (50,000 unit) capsule See Rx Instructions .ROUTE .COMPLEX Qty: 12 0RF Dose Instruction: TAKE 1 CAPSULE BY MOUTH ONCE WEEKLY Rx Instructions: TAKE 1 CAPSULE BY MOUTH ONCE WEEKLY Follow-up/Referrals: Laura Lama MD [Physician, Urology] Virginie,DO Telly [Primary Care Provider] Time of Disposition: 06:32
--- OUTSIDE RECORDS SUMMARY | 2025-11-13 02:54 | XMS_ITS | Encounter Summary ---
Author Organization [facility] Address [address] [place] [id number] Care Team Providers Care Dry Cell Assembly Supervisor Name Role Phone Telly Rachel DO Primary Care Provider + Encounter Details Date Type Department Care Team (Late Contact Info) Description 10/17/2023 Lorena Gaxiolat Message Enc [facility] Family & Internal [address] [phone] Telly Rachel DO [address] [place], [place] [id number] Yearly Blood work Social History Tobacco Use Types Packs/Day Years Used Date Smoking Tobacco: Former Cigarettes 1 2 0 11/15/1983 - 11/15/1985 Smokeless Tobacco: Never Alcohol Use Standard Drinks/Week Comments Yes 5 (1 standard drink = 0.6 oz pur e alcohol) Sex and Gender Information Value Date Recorded Sex Assigned at Male 10/16/2025 12:36 PM SOFTWARE SOLUTIONS ARCHITECT Legal Sex Male 11:41 AM CDT Gender Identity Not on file Sexual Orientation Not on file Occupation Industry Job Start Date Job End Date Not on file Not on file Not on file Not on file documented as of this encounter Plan of Treatment Upcoming Encounters Date Type Department Care Team (Late st Contact Info) Description 12/07/2025 8:40 AM SOFTWARE SOLUTIONS ARCHITECT Office Visit [facility] Family [facility] Internal [address] [phone] Telly Rachel DO [address] [place], [place] [phone] documented as of this encounter Visit Diagnoses Not on filedocumented in this encounter Care Teams Dry Cell Assembly Supervisor Relationship Specialty Start Date End Date Telly Rachel DO [address] [place] [id number] PCP - General FAMILY PRACTICE 09/24/22 documented as of this encounter
[2025-11-13] MEDS: oxyCODONE HCL (*CRX) 5 MG TAB IR PO ×2 (03:00→06:52)
== END 2025-11-13 07:01 | disposition home or self-care (01) ==
PROVIDERS: Emergency Provider Student in an Organized Health Care Education/Training Program; PCP Student in an Organized Health Care Education/Training Program
DX: N13.2 Hydronephrosis with renal and ureteral calculous obstruction (principal); E78.5 Hyperlipidemia, unspecified; Z87.891 Personal history of nicotine dependence; Z90.49 Acquired absence of other specified parts of digestive tract
CPT/HCPCS: 36415; 74176; 80053; 81001; 85025; 99284; A9270